=== PATIENT | female | born 1980 | race Caucasian/White ===

== ENCOUNTER 2020-10-31 12:38 | Inpatient (IN) | payer OTHER ==
[~2020-10-31] VITALS: Ht 180.3 cm; Wt 103.0 kg
[2020-10-31 13:21] LABS: BASOPHILS % 0.4 % (0.0-1.0); EOSINOPHILS # (AUTO) 0.1 (0.0-0.4); EOSINOPHILS % 0.5 % (0.0-6.0); HEMOGLOBIN 13.2 g/dL (12.0-16.0); LYMPHOCYTES # (AUTO) 1.8 (1.0-3.2); LYMPHOCYTES % 16.8 % (18.0-39.1); MEAN CORPUSCULAR HEMOGLOBIN 29.9 pg (28-32); MEAN CORPUSCULAR HGB CONC 32.2 g/dL (31-35); MEAN CORPUSCULAR VOLUME 92.8 fL (81-99); MONOCYTES # (AUTO) 0.9 (0.2-0.8); NEUTROPHILS % 73.7 % (38.7-80.0); PLATELET COUNT 314 x10e3/uL (140-360); RED BLOOD COUNT 4.42 x10e6/uL (3.6-5.1); RED CELL DISTRIBUTION WIDTH 12.1 % (11.7-14.4)
[2020-10-31 13:29] LABS: INR 0.93; PROTHROMBIN TIME 12.7 seconds (11.9-14.5)
[2020-10-31 13:40] LABS: ALBUMIN 4.4 g/dL (3.5-5.0); ALBUMIN/GLOBULIN RATIO 1.2 (0.8-2.0); ANION GAP 14.7 mmol/L (8-16); CALCIUM 9.6 mg/dL (8.4-10.2); CREATININE, SERUM 0.94 mg/dL (0.57-1.11); POTASSIUM 3.7 mmol/L (3.5-5.1)
[2020-10-31] MEDS ORDERED: MORPHINE SULFATE INJ 4 MG/ML INJ 1ML IV PRN (16:00)
[2020-10-31] MEDS ORDERED: SYNTHROID75 MCG PO (19:56)
[2020-10-31 20:30] VITALS: BP 115/80
[2020-10-31 20:46] VITALS: BP 115/80
[2020-10-31 20:51] VITALS: BP 115/80
[2020-11-01] VITALS (7 sets, daily range): BP systolic 114–130; BP diastolic 76–84
[2020-11-01] MEDS ORDERED: METFORMIN HCL500 MG PO (00:19)
[2020-11-01] MEDS: LEVOTHYROXINE SODIUM 75 MCG TAB PO SCH (05:57)
[2020-11-01] MEDS: METFORMIN HCL 500 MG TAB PO SCH (17:09)
[2020-11-02] VITALS (8 sets, daily range): BP systolic 119–144; BP diastolic 72–86
[2020-11-02] MEDS ORDERED: HYDROCODONE/APAP 10MG-325MG TAB PO PRN (05:15)
[2020-11-02] MEDS: LEVOTHYROXINE SODIUM 75 MCG TAB PO SCH (05:24)
[2020-11-02] MEDS ORDERED: SODIUM CHLORIDE 0.9% 250ML 250 ML ONE (09:05)
[2020-11-02] MEDS: CEFTRIAXONE 1 GM in SODIUM CHLORIDE 0.9% 50ML 50 ML IV SCH (09:47)
[2020-11-02] MEDS: METFORMIN HCL 500 MG TAB PO SCH (17:31)
[2020-11-03] VITALS: BP 106/80
[2020-11-03 02:47] VITALS: BP 106/80
[2020-11-03 04:00] VITALS: BP 117/76
[2020-11-03] MEDS: LEVOTHYROXINE SODIUM 75 MCG TAB PO SCH (06:51)
[2020-11-03 07:57] VITALS: BP 129/79
[2020-11-03 08:00] VITALS: BP 129/79
[2020-11-03] MEDS: CEFTRIAXONE 1 GM in SODIUM CHLORIDE 0.9% 50ML 50 ML IV SCH (09:45)
[2020-11-03] MEDS ORDERED: SODIUM CHLORIDE 0.9% 50ML 50 ML ONE (10:17)
[2020-11-03 11:25] VITALS: BP 125/78
== END 2020-11-03 15:32 | disposition home or self-care (01) | DRG 201 ==
LOC: ER 12:41 → ERHOLD 14:11 → MED/SURG 19:38
PROVIDERS: ADMIT Internal Medicine; ATTEND Internal Medicine
PROC: 0W9B30Z Drainage of Left Pleural Cavity with Drainage Device, Percutaneous Approach (ICD-10-PCS; principal; 2020-10-31)
DX: J93.83 Other pneumothorax (principal); J43.9 Emphysema, unspecified; E11.9 Type 2 diabetes mellitus without complications; E66.9 Obesity, unspecified; E03.9 Hypothyroidism, unspecified; Z68.31 Body mass index [BMI] 31.0-31.9, adult; Z88.2 Allergy status to sulfonamides; Z82.49 Family history of ischemic heart disease and other diseases of the circulatory system; Z79.84 Long term (current) use of oral hypoglycemic drugs; Z20.822 Contact with and (suspected) exposure to COVID-19
CPT/HCPCS: 32552; 32557; 36415; 71045; 71046; 71250; 74470; 76705; 80053; 85025; 85610; 85730; 99284; C1729; J0696; J2270; J7050; U0002

== ENCOUNTER 2020-12-23 12:11 | Inpatient (IN) | payer OTHER ==
[~2020-12-23] VITALS: Ht 180.3 cm; Wt 104.1 kg
[~2020-12-23 12:11] MED LIST: METFORMIN HCL500 MG PO; SYNTHROID75 MCG PO
[2020-12-23] MEDS ORDERED: SODIUM CHLORIDE 0.9% 1000ML 1,000 ML IV STA (12:32)
[2020-12-23 13:06] LABS: BASOPHILS # (AUTO) 0.1 (0.0-0.1); BASOPHILS % 0.6 % (0.0-1.0); EOSINOPHILS # (AUTO) 0.3 (0.0-0.4); EOSINOPHILS % 3.1 % (0.0-6.0); HEMOGLOBIN 12.1 g/dL (12.0-16.0); LYMPHOCYTES # (AUTO) 1.6 (1.0-3.2); LYMPHOCYTES % 19.2 % (18.0-39.1); MEAN CORPUSCULAR HEMOGLOBIN 30.1 pg (28-32); MEAN CORPUSCULAR HGB CONC 32.7 g/dL (31-35); MONOCYTES # (AUTO) 0.6 (0.2-0.8); MONOCYTES % 7.7 % (4.4-11.3); NEUTROPHILS # (AUTO) 5.5 (2.1-6.9); NEUTROPHILS % 68.3 % (38.7-80.0); PLATELET COUNT 318 x10e3/uL (140-360); RED BLOOD COUNT 4.02 x10e6/uL (3.6-5.1); RED CELL DISTRIBUTION WIDTH 12.1 % (11.7-14.4)
[2020-12-23 13:24] LABS: INR 0.97; PROTHROMBIN TIME 13.7 seconds (11.9-14.5)
[2020-12-23 13:25] LABS: PARTIAL THROMBOPLASTIN TIME 29.9 seconds (23.8-35.5)
[2020-12-23 14:02] LABS: ALANINE AMINOTRANSFERASE 31 IU/L (0-55); ALBUMIN 3.8 g/dL (3.5-5.0); ALKALINE PHOSPHATASE 71 IU/L (40-150); ANION GAP 16.2 mmol/L (8-16); BLOOD UREA NITROGEN 12 mg/dL (7-26); BUN/CREATININE RATIO 13 (6-25); CALCIUM 9.3 mg/dL (8.4-10.2); CARBON DIOXIDE 22 mmol/L (22-29); CHLORIDE 105 mmol/L (98-107); CREATINE KINASE 100 IU/L (29-168); EST GLOMERULAR FILTRATION RATE 69 ML/MIN (60-); GLUCOSE 97 mg/dL (74-118); MAGNESIUM 1.8 MG/DL (1.3-2.1); POTASSIUM 4.2 mmol/L (3.5-5.1); SODIUM 139 mmol/L (136-145)
[2020-12-23] MEDS ORDERED: SODIUM CHLORIDE 0.9% 50ML 50 ML ONE (14:07)
[2020-12-23] MEDS ORDERED: IOPAMIDOL 370 MG/ML 200 ML INFUS..BTL INJ ONE (14:07)
[2020-12-23 14:24] LABS: THYROID STIMULATING HORMONE 0.755 uIU/mL (0.350-4.940)
[2020-12-23] MEDS: ENOXAPARIN SODIUM INJ 100 MG/ML SYR SC SCH (15:04)
[2020-12-23] MEDS ORDERED: ONDANSETRON HCL INJ 2MG/ML 2ML 2 MG/ML VIAL IV PRN (15:15)
[2020-12-23] MEDS ORDERED: ALBUTEROL SULF 0.083% NEB SOLN 3 ML NEB NEB PRN (16:00)
[2020-12-23] MEDS ORDERED: MAGNESIUM HYDROXIDE 30 ML UDC PO PRN (16:00)
[2020-12-23] MEDS ORDERED: ACETAMINOPHEN 325 MG TAB PO PRN (16:00)
[2020-12-23] MEDS: Morphine 2mg Syringe 2 MG/ML SYR IV PRN ×2 (16:29→21:26)
[2020-12-23] MEDS: DOCUSATE SODIUM 100 MG CAP PO SCH (17:34)
[2020-12-23] MEDS: METFORMIN HCL 500 MG TAB PO SCH (17:35)
[2020-12-23 18:41] VITALS: BP 120/74
[2020-12-23 18:43] VITALS: BP 120/74
[2020-12-23 18:44] VITALS: BP 120/74
[2020-12-23 19:00] VITALS: BP 120/74
[2020-12-23 20:00] VITALS: BP 120/74
[2020-12-23] MEDS: HYDROCODONE/APAP 5MG-325MG TAB PO PRN (20:24)
[2020-12-23 21:00] VITALS: BP 120/74
[2020-12-24] VITALS (8 sets, daily range): BP systolic 102–117; BP diastolic 60–74
[2020-12-24] MEDS: ENOXAPARIN SODIUM INJ 100 MG/ML SYR SC SCH ×2 (02:12→14:30)
[2020-12-24] MEDS: HYDROCODONE/APAP 5MG-325MG TAB PO PRN ×2 (02:42→14:30)
[2020-12-24 04:07] LABS: CREATINE KINASE MB 0.6 ng/mL (0-5.0)
[2020-12-24] MEDS: LEVOTHYROXINE SODIUM 75 MCG TAB PO SCH (05:02)
[2020-12-24 06:07] LABS: BASOPHILS # (AUTO) 0.1 (0.0-0.1); BASOPHILS % 0.8 % (0.0-1.0); EOSINOPHILS # (AUTO) 0.5 (0.0-0.4); EOSINOPHILS % 7.2 % (0.0-6.0); HEMATOCRIT 34.3 % (34.2-44.1); HEMOGLOBIN 10.9 g/dL (12.0-16.0); LYMPHOCYTES # (AUTO) 2.7 (1.0-3.2); LYMPHOCYTES % 36.4 % (18.0-39.1); MEAN CORPUSCULAR HEMOGLOBIN 29.7 pg (28-32); MEAN CORPUSCULAR HGB CONC 31.8 g/dL (31-35); MEAN CORPUSCULAR VOLUME 93.5 fL (81-99); MONOCYTES # (AUTO) 0.7 (0.2-0.8); MONOCYTES % 9.9 % (4.4-11.3); NEUTROPHILS # (AUTO) 3.2 (2.1-6.9); NEUTROPHILS % 44.2 % (38.7-80.0); PLATELET COUNT 309 x10e3/uL (140-360); RED BLOOD COUNT 3.67 x10e6/uL (3.6-5.1); RED CELL DISTRIBUTION WIDTH 12.1 % (11.7-14.4)
[2020-12-24 06:17] LABS: ALBUMIN 3.2 g/dL (3.5-5.0); ANION GAP 16.2 mmol/L (8-16); CALCIUM 8.7 mg/dL (8.4-10.2); CHOL/HDL RATIO 4.6 (3.0-3.6); CREATININE, SERUM 0.86 mg/dL (0.57-1.11); POTASSIUM 4.2 mmol/L (3.5-5.1)
[2020-12-24] MEDS: DOCUSATE SODIUM 100 MG CAP PO SCH ×2 (08:44→16:02)
[2020-12-24] MEDS: SENNOSIDES 8.6 MG TAB PO SCH (08:44)
[2020-12-24] MEDS: Morphine 2mg Syringe 2 MG/ML SYR IV PRN ×2 (12:43→18:38)
[2020-12-24] MEDS: METFORMIN HCL 500 MG TAB PO SCH (16:02)
[2020-12-25] VITALS (8 sets, daily range): BP systolic 97–124; BP diastolic 62–89
[2020-12-25] MEDS: ENOXAPARIN SODIUM INJ 100 MG/ML SYR SC SCH ×2 (02:42→15:03)
[2020-12-25] MEDS: Morphine 2mg Syringe 2 MG/ML SYR IV PRN ×4 (02:42→18:22)
[2020-12-25] MEDS: LEVOTHYROXINE SODIUM 75 MCG TAB PO SCH (05:59)
[2020-12-25] MEDS: SENNOSIDES 8.6 MG TAB PO SCH (08:08)
[2020-12-25] MEDS: DOCUSATE SODIUM 100 MG CAP PO SCH ×2 (08:08→15:03)
[2020-12-25] MEDS: METFORMIN HCL 500 MG TAB PO SCH (15:03)
[2020-12-25] MEDS: HYDROCODONE/APAP 5MG-325MG TAB PO PRN (21:20)
[2020-12-26] VITALS (8 sets, daily range): BP systolic 90–120; BP diastolic 66–93
[2020-12-26] MEDS: ENOXAPARIN SODIUM INJ 100 MG/ML SYR SC SCH (03:45)
[2020-12-26] MEDS: Morphine 2mg Syringe 2 MG/ML SYR IV PRN ×3 (03:45→17:08)
[2020-12-26] MEDS: LEVOTHYROXINE SODIUM 75 MCG TAB PO SCH (06:30)
[2020-12-26] MEDS: DOCUSATE SODIUM 100 MG CAP PO SCH ×2 (08:49→17:08)
[2020-12-26] MEDS: SENNOSIDES 8.6 MG TAB PO SCH (08:49)
[2020-12-26] MEDS ORDERED: OXAZEPAM 10 MG CAP PO PRN (15:15)
[2020-12-26] MEDS: APIXABAN 5 MG TABLET PO SCH (17:08)
[2020-12-26] MEDS: METFORMIN HCL 500 MG TAB PO SCH (17:08)
[2020-12-26] MEDS: ONDANSETRON HCL 4 MG ORAL DISINTEGRATING TAB PO PRN (17:13)
[2020-12-27] VITALS: BP 111/57
[2020-12-27 04:00] VITALS: BP 103/66
[2020-12-27] MEDS: LEVOTHYROXINE SODIUM 75 MCG TAB PO SCH (06:07)
[2020-12-27] MEDS: APIXABAN 5 MG TABLET PO SCH (07:22)
[2020-12-27] MEDS: DOCUSATE SODIUM 100 MG CAP PO SCH (07:22)
[2020-12-27] MEDS: SENNOSIDES 8.6 MG TAB PO SCH (07:22)
[2020-12-27] MEDS ORDERED: ELIQUIS5 MG PO (07:36)
[2020-12-27] MEDS ORDERED: SERTRALINE HCL50 MG PO (07:37)
[2020-12-27] MEDS: ONDANSETRON HCL 4 MG ORAL DISINTEGRATING TAB PO PRN (07:45)
[2020-12-27 08:00] VITALS: BP 122/79
[2020-12-27 08:06] VITALS: BP 122/79
== END 2020-12-27 08:28 | disposition home or self-care (01) | DRG 176 ==
LOC: ER 12:19 → ERHOLD 15:01 → MED/SURG3 17:55
PROVIDERS: ADMIT Internal Medicine; ATTEND Internal Medicine
DX: I26.94 Multiple subsegmental thrombotic pulmonary emboli without acute cor pulmonale (principal); J94.2 Hemothorax; E03.9 Hypothyroidism, unspecified; E77.8 Other disorders of glycoprotein metabolism; E88.09 Other disorders of plasma-protein metabolism, not elsewhere classified; J43.9 Emphysema, unspecified; E11.9 Type 2 diabetes mellitus without complications; D64.9 Anemia, unspecified; Z84.89 Family history of other specified conditions; E28.2 Polycystic ovarian syndrome; Z20.822 Contact with and (suspected) exposure to COVID-19
CPT/HCPCS: 36415; 71045; 71046; 71260; 80053; 80061; 82550; 82553; 83735; 83880; 84443; 84484; 84702; 85025; 85379; 85610; 85730; 93005; 93306; 93970; 94799; 99284; J1650; J2270; J2405; J7030; Q0162; Q9967; U0002

== ENCOUNTER → 2021-01-03 | Outpatient (CLI) | payer OTHER ==
[~2021-01-03] MED LIST changes: +ELIQUIS5 MG PO; +SERTRALINE HCL50 MG PO
== END ==
LOC: RAD 16:14
PROVIDERS: ATTEND Surgery
DX: J93.9 Pneumothorax, unspecified (principal)
CPT/HCPCS: 71046

== ENCOUNTER 2021-12-18 22:07 | Emergency (ER) | payer OTHER ==
[~2021-12-18] VITALS: Ht 180.3 cm; Wt 103.9 kg
[2021-12-18 22:44] LABS: BASOPHILS # (AUTO) 0.1 (0.0-0.1); BASOPHILS % 0.6 % (0.0-1.0); EOSINOPHILS # (AUTO) 0.1 (0.0-0.4); EOSINOPHILS % 1.2 % (0.0-6.0); HEMOGLOBIN 12.3 g/dL (12.0-16.0); LYMPHOCYTES % 23.2 % (18.0-39.1); MEAN CORPUSCULAR HEMOGLOBIN 29.5 pg (28-32); MEAN CORPUSCULAR HGB CONC 31.5 g/dL (31-35); MEAN CORPUSCULAR VOLUME 93.5 fL (81-99); MONOCYTES # (AUTO) 0.6 (0.2-0.8); MONOCYTES % 6.9 % (4.4-11.3); NEUTROPHILS # (AUTO) 5.9 (2.1-6.9); NEUTROPHILS % 67.8 % (38.7-80.0); PLATELET COUNT 324 x10e3/uL (140-360); RED BLOOD COUNT 4.17 x10e6/uL (3.6-5.1); RED CELL DISTRIBUTION WIDTH 12.3 % (11.7-14.4)
[2021-12-18] MEDS ORDERED: SODIUM CHLORIDE FLUSH 10 ML SYR IV PRN (22:45)
[2021-12-18 23:01] LABS: ALANINE AMINOTRANSFERASE 18 IU/L (0-55); ALBUMIN 4.3 g/dL (3.5-5.0); ALBUMIN/GLOBULIN RATIO 1.3 (0.8-2.0); ALKALINE PHOSPHATASE 79 IU/L (40-150); ANION GAP 14.8 mmol/L (8-16); BLOOD UREA NITROGEN 24 mg/dL (7-26); BUN/CREATININE RATIO 22 (6-25); CALCIUM 9.1 mg/dL (8.4-10.2); CARBON DIOXIDE 24 mmol/L (22-29); CHLORIDE 104 mmol/L (98-107); CREATININE, SERUM 1.11 mg/dL (0.57-1.11); GLUCOSE 98 mg/dL (74-118); POTASSIUM 3.8 mmol/L (3.5-5.1); SODIUM 139 mmol/L (136-145)
== END 2021-12-18 23:49 | disposition home or self-care (01) ==
LOC: ER 22:11
DX: R20.8 Other disturbances of skin sensation (principal); R07.89 Other chest pain; Z88.2 Allergy status to sulfonamides; Z86.711 Personal history of pulmonary embolism
CPT/HCPCS: 36415; 71046; 80053; 83880; 84484; 84702; 85025; 85379; 93005; 99284

== ENCOUNTER 2024-04-14 19:52 | Emergency (ER) | payer OTHER ==
[~2024-04-14] VITALS: Ht 180.3 cm; Wt 103.9 kg
[2024-04-14 20:56] VITALS: RESP 18; TEMP 98.2
[2024-04-14] MEDS: SODIUM CHLORIDE 0.9% 1000ML 1,000 ML IV STA (21:19)
[2024-04-14 21:47] LABS: BASOPHILS # (AUTO) 0.1 (0.0-0.1); BASOPHILS % 0.5 % (0.0-1.0); EOSINOPHILS # (AUTO) 0.2 (0.0-0.4); EOSINOPHILS % 1.5 % (0.0-6.0); HEMATOCRIT 36.7 % (34.2-44.1); HEMOGLOBIN 12.1 g/dL (12.0-16.0); LYMPHOCYTES # (AUTO) 2.5 (1.0-3.2); LYMPHOCYTES % 23.7 % (18.0-39.1); MONOCYTES # (AUTO) 1.2 (0.2-0.8); MONOCYTES % 11.4 % (4.4-11.3); NEUTROPHILS # (AUTO) 6.6 (2.1-6.9); NEUTROPHILS % 62.3 % (38.7-80.0); PLATELET COUNT 314 x10e3/uL (140-360); RED BLOOD COUNT 4.17 x10e6/uL (3.6-5.1); RED CELL DISTRIBUTION WIDTH 13.6 % (11.7-14.4); WHITE BLOOD COUNT 10.54 x10e3/uL (4.8-10.8)
[2024-04-14 22:00] VITALS: PULSE 89
[2024-04-14 22:10] LABS: INFLUENZA A AG NEGATIVE (NEGATIVE); INFLUENZA B AG NEGATIVE (NEGATIVE); STREPTOCOCCUS GRP A ANTIGEN NEGATIVE (NEGATIVE)
[2024-04-14 22:11] LABS: ALANINE AMINOTRANSFERASE 19 IU/L (0-55); ALBUMIN 4.2 g/dL (3.5-5.0); ALBUMIN/GLOBULIN RATIO 1.3 (0.8-2.0); ALKALINE PHOSPHATASE 97 IU/L (40-150); ANION GAP 14.9 mmol/L (8-16); BILIRUBIN,TOTAL 0.4 mg/dL (0.2-1.2); BLOOD UREA NITROGEN 15 mg/dL (7-26); BUN/CREATININE RATIO 17 (6-25); CALCIUM 9.2 mg/dL (8.4-10.2); CARBON DIOXIDE 22 mmol/L (22-29); CHLORIDE 106 mmol/L (98-107); CREATINE KINASE 230 IU/L (29-168); EST GLOMERULAR FILTRATION RATE 81 ML/MIN (>=60); GLUCOSE 86 mg/dL (74-118); POTASSIUM 3.9 mmol/L (3.5-5.1); SODIUM 139 mmol/L (136-145); TOTAL PROTEIN 7.4 g/dL (6.5-8.1)
[2024-04-14 22:11] LABS: CORONAVIRUS COVID-19 AG NEGATIVE (NEGATIVE)
[2024-04-14 23:13] LABS: TROPONIN I < 0.001 ng/mL (0-0.300)
[2024-04-14] MEDS: METOPROLOL TARTRATE INJ 1 MG/ML VIAL IV STA (23:31)
[2024-04-15 00:11] VITALS: BP 149/91; PULSE 76; O2SAT 100
== END 2024-04-15 00:12 | disposition home or self-care (01) ==
LOC: ER 19:56
DX: R42 Dizziness and giddiness (principal); I16.0 Hypertensive urgency; E03.9 Hypothyroidism, unspecified; E28.2 Polycystic ovarian syndrome; F41.9 Anxiety disorder, unspecified; Z11.52 Encounter for screening for COVID-19; R94.31 Abnormal electrocardiogram [ECG] [EKG]; Z86.711 Personal history of pulmonary embolism
CPT/HCPCS: 36415; 70450; 71045; 80053; 82550; 83518; 83690; 83880; 84484; 84702; 85025; 87070; 87428; 93005; 99284; J7030